=== PATIENT | male | born 1960 | race Caucasian/White ===

== ENCOUNTER 2020-02-22 08:47 | Outpatient (CLI) | payer MEDICAID ==
--- NOTE | 2020-02-22 09:24 | ULT ---
Sonogram abdomen complete HISTORY: Abdominal pain. Abnormal liver function tests. FINDINGS: Gallbladder has a normal appearance without evidence of stones. Common duct is 0.3 cm. Liver has a normal appearance without focal mass or intrahepatic biliary dilatation. No free fluid. The spleen, kidneys, and visualized portions of the abdominal aorta, IVC, and pancreas are unremarkab le. IMPRESSION : Normal exam.
== END 2020-02-22 08:48 | disposition home or self-care (01) ==
LOC: BICULT 08:47
PROVIDERS: ATTEND Family Medicine
DX: R94.5 Abnormal results of liver function studies (principal)
CPT/HCPCS: 36415; 80074; 93975

== ENCOUNTER 2021-10-20 09:05 | Emergency (ER) | payer OTHER ==
[2021-10-20] MEDS ORDERED: Acetaminophen 500 MG TAB ONE (11:42)
== END 2021-10-20 13:10 | disposition home or self-care (01) ==
LOC: ERS 09:05
DX: S22.32XA Fracture of one rib, left side, initial encounter for closed fracture (principal); V03.90XA Pedestrian on foot injured in collision with car, pick-up truck or van, unspecified whether traffic or nontraffic accident, initial encounter; E11.9 Type 2 diabetes mellitus without complications; F17.290 Nicotine dependence, other tobacco product, uncomplicated